=== PATIENT | female | born 2005 | race Hispanic/Latino ===

== ENCOUNTER 2023-10-23 18:54 | Emergency (ER) | payer OTHER ==
[2023-10-23] MEDS ORDERED: traMADol HCl 50 MG TAB ONE (23:17)
== END 2023-10-23 23:22 | disposition home or self-care (01) ==
LOC: CSHERS 18:54
DX: S00.83XA Contusion of other part of head, initial encounter (principal); V89.2XXA Person injured in unspecified motor-vehicle accident, traffic, initial encounter
CPT/HCPCS: 70486